=== PATIENT | male | born 1945 | race Caucasian/White ===

== ENCOUNTER 2023-08-28 14:40 | Emergency (ER) | payer MEDICARE, SELFPAY | END 2023-08-28 15:52 | disposition home or self-care (01) | LOC: MADERS 14:40 | DX: Z04.3 Encounter for examination and observation following other accident (principal); R55 Syncope and collapse; I10 Essential (primary) hypertension; F17.220 Nicotine dependence, chewing tobacco, uncomplicated; Z95.5 Presence of coronary angioplasty implant and graft | CPT/HCPCS: 70450; 72125; 93005 ==